=== PATIENT | female | born 1960 | race Caucasian/White ===

== ENCOUNTER 2021-10-21 13:27 | Outpatient (CLI) | payer OTHER | END 2021-10-21 13:28 | disposition home or self-care (01) | LOC: CSHULT 13:27 | PROVIDERS: ATTEND Orthopaedic Surgery | DX: S46.002A Unspecified injury of muscle(s) and tendon(s) of the rotator cuff of left shoulder, initial encounter (principal); M25.512 Pain in left shoulder; M75.122 Complete rotator cuff tear or rupture of left shoulder, not specified as traumatic; M62.512 Muscle wasting and atrophy, not elsewhere classified, left shoulder; M19.012 Primary osteoarthritis, left shoulder | CPT/HCPCS: 76881 ==